=== PATIENT | male | born 1965 | race Caucasian/White ===

== ENCOUNTER → 2016-10-27 | Outpatient (CLI) | payer OTHER ==
[~2016-10-27] MED LIST: AMLODIPINE-BEN1 EACH PO; CRESTOR5 MG PO; PRILOSEC20 MG PO; ZETIA10 MG PO
--- NOTE | ~2016-10-27 | ESTC ---
Cardiac Perfusion Imaging Demographics Patient Name EVE Mcghee III Gender Male Patient Number [id number] Race Visit Number [id number] Ethnicity [employer] Room Number Accession Number [id number] Height 72 inches Date of 1965 Weight 215 pounds [place] Date of study 10/27/2016 Physician Supervising /MIHAIP Monika TSAI Technologist Elizabeth Vivar MD Ordering Physician Monika Vivar MD aviation survival technician Stress ECG Reading Monika Argueta Nurse Molly Borja Physician Cb MCDANIELS RN Cristóbal Anderson RN Procedure Admit Source:Other. Procedure Type: Nuclear Stress Test:Exercise, Cardiolite Stress Test Procedure Start time: 10/27/2016 08:45 Indications: Low EF. Risk Factors The patient risk factors include:treated hypercholesterolemia, treated hypertension, untreated diabetes mellitus and dyslipidemia. Conclusions Summary Perfusion Images: The overall quality of the study is good. Left ventricular cavity is noted to be normal on the stress and rest studies. There is no evidence of abnormal lung activity. The right ventricle is not visualized and cannot be assessed. Stress SPECT images and Rest SPECT images demonstrate homogenous tracer distribution throughout the myocardium. Gated SPECT imaging reveals normal myocardial thickening and wall motion. The left ventricular ejection fraction was calculated to be 58%. Impression ECG portion of stress test is clinically negative for ischemia by diagnostic criteria. Myocardial perfusion imaging is normal. Overall left ventricular systolic function was normal without regional wall motion abnormalities. Stress Protocols Resting ECG Normal sinus rhythm. Pre-stress physical exam: Patient assessed by Dr Frank prior to testing. Stress Protocol:Exercise Predicted HR: 167 bpm ECG Findings No ECG changes suggestive of ischemia. Arrhythmias No rhythm abnormality. Symptoms No cardiovascular symptoms with maximal exercise. Stress Interpretation Appropriate hemodynamic response to exercise. No significant ST-T wave changes with exercise. EKG portion is negative for ischemia by diagnostic criteria. The Noble Treadmill score was 9 .This corresponds to a low risk stress test. Imaging Results Summed scores - Summed stress score: 2 - Summed rest score: 3 - Summed difference score: -1 Stress ejection Ejection fraction:58 % EDV :117 ml ESV :49 ml Stroke volume :68 ml LV mass :155 gr Imaging Protocols Rest Stress Isotope:Tc99m Sestamibi IV Isotope: Tc99m Sestamibi IV Isotope dose:14.5 mCi Isotope dose:41.9 mCi Date:10/27/2016 07:32 Date:10/27/2016 09:40 Technique: SPECT Technique: Gated Supine SPECT Supine Scan Time:45-60 minutes post Scan Time:15-30 minutes post injection injection Medical History Admission Data Admission date: 10/27/2016 Admission Time: 07:07 Hospital Status: Outpatient. Signatures dtt: KEITH SANCHEZ dtd: 10/27/16 0845 Physician Self Edit
== END | disposition disaster alternative care site (69) ==
LOC: GRAD 07:07
DX: R94.39 Abnormal result of other cardiovascular function study (principal); E78.00 Pure hypercholesterolemia, unspecified; E11.9 Type 2 diabetes mellitus without complications; E78.5 Hyperlipidemia, unspecified; I10 Essential (primary) hypertension
CPT/HCPCS: A9500